=== PATIENT | male | born 1985 | race Caucasian/White ===

== ENCOUNTER 2024-04-24 00:18 | Inpatient (IN) | payer OTHER ==
[2024-04-24 00:50] LABS: APPEARANCE,URINE CLEAR (Clear); BILIRUBIN,URINE NEGATIVE (Negative); COLOR,URINE YELLOW (Yellow); GLUCOSE,URINE NEGATIVE (Negative); KETONES,URINE TRACE (Negative); LEUKOCYTE ESTERASE,URINE NEGATIVE (Negative); NITRITE,URINE NEGATIVE (Negative); OCCULT BLOOD,URINE TRACE-INTACT (Negative); PH,URINE 5.5 (5.0-8.0); PROTEIN,URINE 1+ (Negative); UROBILINOGEN,URINE 0.2 (0.2-1.0)
[2024-04-24] MEDS: Tranexamic Acid 1,000 MG/10 ML Vial IVPUSH ONE (01:07)
[2024-04-24] MEDS: Lactated Ringers 1,000 ML IV SCH (01:09)
[2024-04-24 01:10] LABS: BASOPHILS ABSOLUTE AUTO 0.1 K/mm3 (0.0-0.2); BASOPHILS PERCENT AUTO 0.3 % (0.0-1.0); EOSINOPHILS ABSOLUTE AUTO 0.1 K/mm3 (0.0-0.4); EOSINOPHILS PERCENT AUTO 0.4 % (0.0-6.0); HEMOGLOBIN 10.9 gm/dl (14.0-18.0); IMMATURE GRAN PERCENT AUTO 0.6 % (0.0-0.4); LYMPHOCYTES ABSOLUTE AUTO 1.3 K/mm3 (1.0-4.8); LYMPHOCYTES PERCENT AUTO 7.3 % (24.0-44.0); MEAN CORPUSCULAR HEMOGLOBIN 32.2 pg (28.0-32.0); MEAN CORPUSCULAR HGB CONC 34.1 g/dl (32.0-36.0); MEAN CORPUSCULAR VOLUME 94.4 fl (83.0-99.0); MEAN PLATELET VOLUME 8.2 fl (9.4-12.4); MONOCYTES ABSOLUTE AUTO 0.9 K/mm3 (0.0-0.8); MONOCYTES PERCENT AUTO 5.4 % (0.0-8.0); NEUTROPHILS ABSOLUTE AUTO 14.7 K/mm3 (1.8-7.7); PLATELET COUNT,PLT 317 K/mm3 (150-400); RED BLOOD CELL COUNT 3.39 M/mm3 (4.52-5.90); WHITE BLOOD CELL COUNT,WBC 17.04 K/mm3 (3.9-11.3)
[2024-04-24 01:12] LABS: BACTERIA,URINE FEW /hpf (FEW); EPITHELIAL CELLS,URINE NOT SEEN /hpf (0-5); RBC,URINE 0-5 /hpf (0-5); WBC,URINE 0-5 /hpf (0-5)
[2024-04-24 01:13] LABS: MUCUS,URINE MANY /hpf (FEW)
[2024-04-24 01:32] LABS: A/G RATIO 1.1 (1-2); ALBUMIN 3.4 g/dl (3.4-5.0); ANION GAP 11.5 (5-15); BILIRUBIN TOTAL 0.4 mg/dL (0.2-1.0); BUN/CREATININE RATIO 15.8 (14-18); C-REACTIVE PROTEIN 2.56 mg/dL (<0.30); CALCIUM 8.4 mg/dL (8.5-10.1); CREATININE 1.2 mg/dL (0.7-1.3); EST CRCL DRUG DOSING (CG) 83.47 mL/min; MAGNESIUM 1.7 mg/dL (1.8-2.4); POTASSIUM,K 4.5 mEq/L (3.5-5.1); PROTEIN TOTAL,TP 6.5 g/dl (6.4-8.2)
[2024-04-24 01:35] LABS: LACTIC ACID 0.7 mmol/L (0.4-2.0)
[2024-04-24] MEDS: Iopamidol 612 MG/ML 100 ML Bottle IVPUSH ONE (01:45)
[2024-04-24] MEDS: Dextrose 5%-0.9% NaCl 1,000 ML IV SCH (02:57)
[2024-04-24] MEDS: HYDROmorphone 0.5 MG/0.5 ML Syringe IVPUSH ONE (05:19)
[2024-04-24] MEDS: Ondansetron 4 MG/2 ML SDV IVPUSH ONE (05:19)
[2024-04-24 05:37] LABS: BASOPHILS PERCENT AUTO 0.3 % (0.0-1.0); EOSINOPHILS PERCENT AUTO 0.1 % (0.0-6.0); HEMATOCRIT 26.9 % (42.0-52.0); IMMATURE GRAN ABSOLUTE AUTO 0.04 K/mm3 (0.00-0.05); IMMATURE GRAN PERCENT AUTO 0.4 % (0.0-0.4); LYMPHOCYTES PERCENT AUTO 9.2 % (24.0-44.0); MEAN CORPUSCULAR HEMOGLOBIN 32.3 pg (28.0-32.0); MEAN CORPUSCULAR HGB CONC 34.6 g/dl (32.0-36.0); MEAN CORPUSCULAR VOLUME 93.4 fl (83.0-99.0); MEAN PLATELET VOLUME 8.5 fl (9.4-12.4); MONOCYTES ABSOLUTE AUTO 0.6 K/mm3 (0.0-0.8); MONOCYTES PERCENT AUTO 5.2 % (0.0-8.0); NEUTROPHILS ABSOLUTE AUTO 9.2 K/mm3 (1.8-7.7); NEUTROPHILS PERCENT AUTO 84.8 % (41.0-71.0); PLATELET COUNT,PLT 250 K/mm3 (150-400); RED BLOOD CELL COUNT 2.88 M/mm3 (4.52-5.90); WHITE BLOOD CELL COUNT,WBC 10.81 K/mm3 (3.9-11.3)
[2024-04-24 05:45] LABS: HEMOGLOBIN 9.3 gm/dl (14.0-18.0)
[2024-04-24 05:54] LABS: ANION GAP 10.3 (5-15); BUN/CREATININE RATIO 16.7 (14-18); CALCIUM 7.9 mg/dL (8.5-10.1); CREATININE 0.9 mg/dL (0.7-1.3); EST CRCL DRUG DOSING (CG) 111.29 mL/min; POTASSIUM,K 4.3 mEq/L (3.5-5.1)
[2024-04-24] MEDS ORDERED: Ondansetron 4 MG/2 ML SDV IV PRN (09:34)
[2024-04-24] MEDS ORDERED: Pantoprazole 80 MG in Sodium Chloride 0.9% 100 ML IV ONE (09:44)
[2024-04-24] MEDS: Pantoprazole 40 MG Vial IVPUSH ONE (10:20)
[2024-04-24] MEDS: Pantoprazole 80 MG in Sodium Chloride 0.9% 100 ML IV SCH (10:28)
[2024-04-24 12:09] LABS: HEMATOCRIT 27.5 % (42.0-52.0); HEMOGLOBIN 9.2 gm/dl (14.0-18.0)
[2024-04-24] MEDS: Acetaminophen 325 MG Tab PO PRN (15:16)
[2024-04-24] MEDS: Polyethylene Glycol/Electrolytes 4,000 ML Bottle PO ONE ×2 (15:25→19:59)
[2024-04-24 17:18] LABS: HEMATOCRIT 27.7 % (42.0-52.0); HEMOGLOBIN 9.5 gm/dl (14.0-18.0)
[2024-04-24] MEDS: Benzonatate 100 MG Cap PO PRN (20:00)
[2024-04-25] MEDS: Dextrose 5%-0.45% NaCl 1,000 ML IV SCH (00:58)
[2024-04-25 04:31] LABS: BASOPHILS PERCENT AUTO 0.7 % (0.0-1.0); EOSINOPHILS ABSOLUTE AUTO 0.1 K/mm3 (0.0-0.4); EOSINOPHILS PERCENT AUTO 2.2 % (0.0-6.0); HEMATOCRIT 24.6 % (42.0-52.0); HEMOGLOBIN 8.3 gm/dl (14.0-18.0); IMMATURE GRAN ABSOLUTE AUTO 0.03 K/mm3 (0.00-0.05); IMMATURE GRAN PERCENT AUTO 0.5 % (0.0-0.4); LYMPHOCYTES ABSOLUTE AUTO 1.7 K/mm3 (1.0-4.8); LYMPHOCYTES PERCENT AUTO 29.5 % (24.0-44.0); MEAN CORPUSCULAR HEMOGLOBIN 31.9 pg (28.0-32.0); MEAN CORPUSCULAR HGB CONC 33.7 g/dl (32.0-36.0); MEAN CORPUSCULAR VOLUME 94.6 fl (83.0-99.0); MEAN PLATELET VOLUME 8.9 fl (9.4-12.4); MONOCYTES ABSOLUTE AUTO 0.7 K/mm3 (0.0-0.8); MONOCYTES PERCENT AUTO 11.2 % (0.0-8.0); NEUTROPHILS ABSOLUTE AUTO 3.2 K/mm3 (1.8-7.7); NEUTROPHILS PERCENT AUTO 55.9 % (41.0-71.0); PLATELET COUNT,PLT 239 K/mm3 (150-400)
[2024-04-25 05:03] LABS: ANION GAP 10.9 (5-15); BUN/CREATININE RATIO 5.5 (14-18); CALCIUM 7.9 mg/dL (8.5-10.1); CREATININE 1.1 mg/dL (0.7-1.3); EST CRCL DRUG DOSING (CG) 91.05 mL/min; MAGNESIUM 1.5 mg/dL (1.8-2.4); POTASSIUM,K 3.9 mEq/L (3.5-5.1)
[2024-04-25] MEDS: Magnesium Sulfate/Water Premix 2 GM in Premix Bag 1 BAG IV ONE (08:13)
[2024-04-25 10:07] LABS: HEMATOCRIT 26.3 % (42.0-52.0); HEMOGLOBIN 9.2 gm/dl (14.0-18.0)
[2024-04-25] MEDS: Pantoprazole 80 MG in Sodium Chloride 0.9% 100 ML IV SCH (10:16)
[2024-04-25] MEDS ORDERED: Propofol 200 MG/20 ML SDV ONE (11:20)
[2024-04-25] MEDS ORDERED: Midazolam 1 MG/ML 2 ML SDV ONE (11:20)
[2024-04-25] MEDS ORDERED: Lidocaine 1% 4 ML ONE (11:20)
[2024-04-25] MEDS ORDERED: fentaNYL 100 MCG/2 ML SDV ONE (11:20)
[2024-04-25] MEDS: Pantoprazole 40 MG Tab.CR PO SCH (16:21)
[2024-04-25] MEDS: Sucralfate 1 GM Tab PO SCH (16:21)
[2024-04-26 04:49] LABS: HEMATOCRIT 25.9 % (42.0-52.0); HEMOGLOBIN 8.7 gm/dl (14.0-18.0)
[2024-04-26] MEDS: Magnesium Sulfate/Water Premix 4 GM in Premix Bag 1 BAG IV ONE (08:26)
== END 2024-04-26 12:45 | disposition home or self-care (01) | DRG 374 ==
LOC: JD.ED 00:18 → JD.MS 09:34
PROVIDERS: ADMIT Family Medicine; ATTEND Family Medicine
PROC: 0DBN8ZX Excision of Sigmoid Colon, Via Natural or Artificial Opening Endoscopic, Diagnostic (ICD-10-PCS; 2024-04-25)
PROC: 0DBH8ZX Excision of Cecum, Via Natural or Artificial Opening Endoscopic, Diagnostic (ICD-10-PCS; 2024-04-25)
PROC: 0DB78ZX Excision of Stomach, Pylorus, Via Natural or Artificial Opening Endoscopic, Diagnostic (ICD-10-PCS; principal; 2024-04-25 12:00)
PROC: 0DBK8ZX Excision of Ascending Colon, Via Natural or Artificial Opening Endoscopic, Diagnostic (ICD-10-PCS; 2024-04-25 12:00)
DX: K92.2 Gastrointestinal hemorrhage, unspecified (principal); D64.9 Anemia, unspecified; Z79.899 Other long term (current) drug therapy; D37.2 Neoplasm of uncertain behavior of small intestine; K29.81 Duodenitis with bleeding; D62 Acute posthemorrhagic anemia; K52.9 Noninfective gastroenteritis and colitis, unspecified; E83.42 Hypomagnesemia
CPT/HCPCS: 36415; 71045; 74177; 80048; 80053; 81001; 83605; 83735; 85025 ×2; 86140; 86850; 86900; 86901; 86922; 96361; 96374; 96375; 99285; J1171; J2405; J7042; J7120; Q9967; 00813; 85014; 85018; 88305; 99222; 99232; 99239; A9270-GY; J2250; J2470; J2704; J3010; J3475; J3490; J7799